=== PATIENT | male | born 1965 ===

== ENCOUNTER 2021-12-03 14:37 | Outpatient (CLI) | payer OTHER | END 2021-12-03 14:48 | disposition home or self-care (01) | LOC: RAD 14:37 | DX: M99.01 Segmental and somatic dysfunction of cervical region (principal); M99.02 Segmental and somatic dysfunction of thoracic region ==

== ENCOUNTER 2023-11-12 13:53 | Outpatient (CLI) | payer OTHER | END 2023-11-12 14:01 | disposition home or self-care (01) | LOC: SONOGRAMA 13:53 | PROVIDERS: ATTEND Urology | DX: N40.0 Benign prostatic hyperplasia without lower urinary tract symptoms (principal); R31.1 Benign essential microscopic hematuria; R33.9 Retention of urine, unspecified ==

== ENCOUNTER 2023-11-30 15:39 | Outpatient (CLI) | payer OTHER | END 2023-11-30 15:40 | disposition home or self-care (01) | LOC: LAB 15:39 | PROVIDERS: ATTEND Urology | DX: R97.20 Elevated prostate specific antigen [PSA] (principal) ==

== ENCOUNTER 2024-05-17 09:45 | Inpatient (IN) | payer OTHER ==
[~2024-05-17] VITALS: Ht 177.8 cm; Wt 98.9 kg
[2024-05-17 12:06] LABS: HEMATOCRIT 46.4 % (39.0-48.0); MEAN CELL VOLUME 93.7 fL (80.0-100.00); MEAN CORPUSCULAR HEMOGLOBIN 32.2 pg (27.00-32.0); MEAN CORPUSCULAR HGB CONC 34.4 g/dl (32.0-36.0); PLATELET COUNT 244 K/uL (150-450); RED BLOOD COUNT 4.95 M/uL (4.00-6.00); RED CELL DISTRIBUTION WIDTH 13.4 % (11.5-14.5)
[2024-05-17 12:17] LABS: INR 1.04; PARTIAL THROMBOPLASTIN TIME 29.3 SECONDS (22.0-34.0); PROTHROMBIN TIME 11.3 SECONDS (9.0-11.5)
[2024-05-17] MEDS ORDERED: SIMVASTATIN40 MG PO (12:58)
[2024-05-17 12:59] VITALS: BP 142/67
[2024-05-17] MEDS ORDERED: MAGNESIUM200 MG PO (12:59)
[2024-05-17] MEDS ORDERED: METFORMIN HCL500 M3 PO (12:59)
[2024-05-17] MEDS ORDERED: VALSARTAN-HCTZ1 EAC1 PO (12:59)
[2024-05-17] MEDS ORDERED: VITAMIN D310 MCG/1 M PO (12:59)
[2024-05-17 13:01] LABS: PH,URINE 5.5 (5.0-8.0); URINE APPEARANCE Clear; URINE BILIRRUBIN Negative (NEGATIVE); URINE BLOOD Trace; URINE COLOR Yellow; URINE GLUCOSE Negative (NEGATIVE); URINE KETONE Negative (NEGATIVE); URINE LEUKOCYTE Negative; URINE NITRATE Negative; URINE PROTEIN Negative (NEGATIVE); URINE UROBILINOGEN 0.2 E.U./dl
[2024-05-17 13:02] VITALS: BP 150/87
[2024-05-17 13:03] LABS: CALCIUM 9.4 mg/dL (8.5-10.1); CREATININE SERUM 0.94 mg/dL (0.70-1.30); GFR 82.43; POTASSIUM 3.65 mEq/L (3.5-5.1)
[2024-05-17 13:05] LABS: URINE RBC 8.5 uL (0.0-20.8)
[2024-05-17 13:07] LABS: URINE BACTERIA 2.5 uL (0.0-1933); URINE EPITHELIAL CELLS 0.3 uL (0.0-38.8)
[2024-05-20] MEDS ORDERED: CEFAZOLIN SODIUM 1,000 MG VIAL IV ONE (10:45)
[2024-05-20] MEDS ORDERED: ENOXAPARIN SODIUM 40 MG/0.4 ML SYRINGE SUBCUTANEO ONE (11:15)
[2024-05-20] MEDS ORDERED: DEXTROSE 5 %-0.45 % SOD CHLORD 1,000 ML IV SCH (13:53)
[2024-05-20] MEDS ORDERED: ONDANSETRON HCL 2 MG/ML VIAL IV PRN (14:00)
[2024-05-20] MEDS ORDERED: CEFAZOLIN SODIUM 1,000 MG VIAL IV SCH (17:00)
[2024-05-20] MEDS ORDERED: DOCUSATE SODIUM 100MG CAP PO SCH (17:00)
[2024-05-20] MEDS ORDERED: FAMOtidine 20 MG TABLET PO SCH (17:00)
[2024-05-20] MEDS ORDERED: SIMETHICONE 125 MG CAPSULE PO SCH (17:00)
[2024-05-20] MEDS ORDERED: MORPHINE SULFATE 4 MG/ML VIAL IV ONE (18:00)
[2024-05-20] MEDS ORDERED: FAMOTIDINE/PF 20 MG/2 ML VIAL ONE (18:08)
[2024-05-20] MEDS ORDERED: CEFAZOLIN SODIUM 1,000 MG VIAL ONE (18:08)
[2024-05-20 19:21] VITALS: BP 142/67; O2SAT 94
[2024-05-20] MEDS ORDERED: OxyCODONE HCL/APAP UD (PERCOCET) PO PRN (20:45)
[2024-05-21] VITALS: BP 144/66; O2SAT 96
[2024-05-21 08:00] VITALS: BP 127/75; O2SAT 96
[2024-05-21 08:13] LABS: HEMATOCRIT 37.6 % (39.0-48.0); HEMOGLOBIN 13.4 g/dL (13-16.00); MEAN CELL VOLUME 91.6 fL (80.0-100.00); MEAN CORPUSCULAR HEMOGLOBIN 32.6 pg (27.00-32.0); MEAN CORPUSCULAR HGB CONC 35.6 g/dl (32.0-36.0); PLATELET COUNT 194 K/uL (150-450); RED BLOOD COUNT 4.11 M/uL (4.00-6.00)
[2024-05-21 08:44] LABS: CALCIUM 7.8 mg/dL (8.5-10.1); CREATININE SERUM 1.01 mg/dL (0.70-1.30); GFR 75.87; POTASSIUM 3.37 mEq/L (3.5-5.1)
[2024-05-21] MEDS ORDERED: ENOXAPARIN SODIUM 40 MG/0.4 ML SYRINGE SUBCUTANEO SCH (09:00)
[2024-05-21] MEDS ORDERED: POTASSIUM CHLORIDE 20MEQ/100ML H2O PB IV NR (10:00)
[2024-05-21 16:00] VITALS: BP 100/61; O2SAT 97
[2024-05-22 00:35] VITALS: BP 133/72; O2SAT 97
[2024-05-22 09:24] VITALS: BP 151/74; O2SAT 99
== END 2024-05-22 17:01 | disposition home or self-care (01) | DRG 708 ==
LOC: O/R 05-20 05:40 → SURH 05-20 05:40
PROVIDERS: ADMIT Urology; ATTEND Urology
PROC: 8E0W4CZ Robotic Assisted Procedure of Trunk Region, Percutaneous Endoscopic Approach (ICD-10-PCS; 2024-05-20)
PROC: 0VT04ZZ Resection of Prostate, Percutaneous Endoscopic Approach (ICD-10-PCS; principal; 2024-05-20 07:00)
DX: C61 Malignant neoplasm of prostate (principal)
CPT/HCPCS: 55866; S2900

== ENCOUNTER 2024-07-27 11:15 | Outpatient (CLI) | payer OTHER ==
[~2024-07-27 11:15] MED LIST: MAGNESIUM200 MG PO; METFORMIN HCL500 M3 PO; SIMVASTATIN40 MG PO; VALSARTAN-HCTZ1 EAC1 PO; VITAMIN D310 MCG/1 M PO
== END 2024-07-27 11:22 | disposition home or self-care (01) ==
LOC: SONOGRAMA 11:15
PROVIDERS: ATTEND Urology
DX: C61 Malignant neoplasm of prostate (principal); R31.1 Benign essential microscopic hematuria